=== PATIENT | female | born 1960 | race Caucasian/White ===

== ENCOUNTER 2021-04-02 00:07 | Day surgery (SDC) | payer OTHER, SELFPAY ==
[2021-03-21 12:51] VITALS: BMI 17.4
--- NOTE | 2021-03-21 13:03 | PC.NURSE ---
Report to the Outpatient Waiting Room, entrance under the green pavilion located off [facility], at time __0830 on date ___04/02/21____. OR Time: ___1029 . - You and your visitor will be asked a series of questions to screen for COVID 19 for your protection. - A mask is required within the hospital. - Only one visitor is allowed at this time. Patient visitors will be guided where to wait when not with patient. Preoperative COVID Testing Requirements: No COVID Test needed if: (proof is required; if not received patient will have Rapid Test prior to entry) - Patient has received COVID Vaccine at least 14 days prior to procedure date or - Patient has positive COVID test result within last 90 days of surgery date. COVID Test needed if above criteria is not met If not COVID vaccinated a COVID test must be conducted within 72 hours of surgery and patient is asked to isolate self from time of testing until procedure. You will go to the [facility] for your COVID testing. The [facility] is located at the corner of [address] [facility]. You will only be called if COVID results are positive and your surgeon may reschedule your elective surgery date. Patients may have clear liquids (water, carbonated beverages, clear teas, apple juice) until 3 hours prior to surgery with a maximum of 20 ounces. - No food from midnight until time of surgery - Infants may have breast milk until 4 hours before surgery, infant formula 6 hours prior to surgery. - Children will be allowed to drink immediately following surgery. If applicable, please bring a bottle or sippy cup to assist with drinking. Juice, water, soda, and popsicles are readily available. For infants on formula, please bring formula the day of surgery. Pacifiers are allowed. Take the following medications with a SIP of water the morning of surgery: ____ADVAIR INHALER Medications to discontinue per physician ALL VIT./SUPPLEMENTS Date to take last dose 03/29/21 Please no make-up, nail japanese, hairspray, perfume, deodorant, or body powder the day of surgery. No jewelry (including any body piercings) or valuables the day of surgery, leave them at home. Please take a shower or bath the night before, or the morning of, surgery with an antibacterial soap. Wear comfortable, loose fitting clothing. Children are encouraged to wear pajamas. - Jewelry must be removed prior to entering the operating room. Rings and piercings that are not removed may be cut off. - The hospital will not accept responsibility for valuables. - Please leave all valuables, including medications, at home the day of surgery. If you are going home after surgery, a licensed highway truck driver must drive you home. - NO public transportation without another adult. - We recommend that an adult stay with you for 24 hours following discharge. - We also recommend that you do not drive, make important decision, drink alcoholic beverages, or take any drugs that were not prescribed by your health care provider for at least 24 hours after your discharge time. For Pediatric surgeries, we recommend two adults accompany the child home (only one inside the building at this time). Follow any additional instructions given to you from your surgeon. Telephone instructions given to ____PATIENT and asked if any additional questions and then verbalized understanding. Patient advised to call surgeon office or pre surgery nurse liaison [phone] if any additional questions.
--- NOTE | 2021-04-01 09:49 | WPDANESEPPF ---
Anes - Initial Pre Proc Eval Procedure: Operation Date: 04/02/21 10:30 Proposed Procedures p Bilateral Breast Implant Exchange - Buster Rowland MD Date/Time: 04/01/21 09:49 Surgeon: Buster Rowland MD Pre Op Diagnosis: bilateral implant rupture Patient Data Age: 60 Gender: F Height: 1.78 m Weight: 55 kg Allergies Allergy/AdvReac Type Severity Reaction Status Date / Time cat dander Allergy Unknown asthma Verified 04/02/21 09:06 house dust Allergy Unknown asthma Verified 04/02/21 09:06 Home Medications Medication Instructions Recorded Confirmed Type fluticasone propionate 45 2 puff INHALATION BID 08/27/20 04/02/21 History mcg-salmeterol 21 mcg/actuation HFA inhaler lisinopril 20 mg tablet 20 mg PO QAM 08/27/20 04/02/21 History carisoprodol 350 mg tablet 350 mg PO TID PRN #21 tablet 03/18/21 03/21/21 Rx docusate sodium 100 mg capsule 100 mg PO DAILY #14 cap 03/18/21 03/21/21 Rx oxycodone-acetaminophen 5 mg-325 1 tablet PO Q6H PRN #30 tablet 03/18/21 03/21/21 Rx mg tablet cyanocobalamin (vitamin B-12) 500 mcg PO EVERY OTHER DAY 03/21/21 04/02/21 History vitamin B complex 1 cap PO EVERY OTHER DAY 03/21/21 04/02/21 History Patient hx anesthesia problems: none Family hx anesthesia problems: none Results Review: All pre-operative results and documents have been reviewed as part of the pre-operative evaluation. [facility] Past Medical History Medical History (Updated 04/01/21 @ 09:50 by Slade Guo DO) Asthma Hypertension Social History Social History Smoking status: Never smoker Substance use: never Living arrangements: with family Additional living arrangements comments: [facility] Spiritual care concerns: No Anes - Eval Final PreProcedure Day of Procedure 04/01/21 09:49 Patient weight: thin Heart: regular rate and rhythm Lungs: clear to auscultation and normal air movement Airway: Mallampati scale class II Neurological: alert and oriented Last oral intake: >/= 8 hours ASA classification: II Emergent: no Anesthetic plan: proceed Anesthesia type and monitoring: general GIVS and LMA and standard monitoring Results Review: All pre-operative results and documents have been reviewed as part of the pre-operative evaluation. Informed Consent: The patient's anesthetic plan and its attendant risks and benefits were discussed with the patient/family/POA. Questions were solicited and answers provided to the satisfaction of the patient/family/POA.
[2021-04-02] VITALS (10 sets, daily range): BP systolic 99–140; BP diastolic 64–79; PULSE 57–67; RESP 8–20; TEMP 36.7–36.8; O2SAT 94–100; BMI 17.3
--- NOTE | 2021-04-02 09:41 | WPDHPUPDATE1 ---
History and Physical Update Update Date/Time: 04/02/21 09:41 History and Physical has been reviewed, including an updated exam of the patient. There are NO changes in the patient's condition. Risks, benefits, and alternatives have been discussed and questions answered. Patient agrees to proceed with procedure.
[2021-04-02] MEDS: LACTATED RINGERS 1,000 ML 30 ML IV CONT ×2 (09:53→12:09)
--- NOTE | 2021-04-02 09:57 | SUR.PREOP ---
PT TEARFUL AND ANXIOUS DURING IV INSERTION. SPOUSE AT BEDSIDE [id number]; RN IN ROOM WHILE DR STACY MARKING PT. SPOUSE PRESENT ALSO
--- NOTE | 2021-04-02 10:05 | W.PM.PROC2 ---
Procedure Note - Detailed Date of Procedure 04/02/21 Pre-op Diagnosis bilateral implant rupture Post-op Diagnosis same Procedure Performed Bilateral breast implant exchange Surgeon Buster Rowland MD Anesthesia MAC Findings Bilateral implant rupture with significant extravasation extracapsular silicone bilateral. Bilateral implants 305cc. Smooth. Unable to identify other markings. Pre-pectoral Total capsulectomy completed. Bilateral Natrelle SoftTouch Implants 365cc Right - REF# [id number] SN [id number] Left - REF# [id number] SN [id number] Description of Procedure Preoperatively the risks, benefits, alternatives were discussed in extensive detail. I want her to be very clear about the risks involved as well as expectations. She understands she has skin laxity. She understands she will still have this skin laxity following the procedure. We explained the limitations this procedure and how we can make her worse during this procedure. She understands there is always risk of loss of implants. If the implants are smooth and no atypical findings of the capsule she declines sending the capsule to pathology. She understands the risks involved and that without pathology number certain there is abnormality in this capsule she is willing to accept this risk and this was discussed with her . All questions were answered to her satisfaction today and a lengthy open-ended conversation with her and her . She is going to discuss anesthesia options with anesthesia. Consent was obtained. She would like proceed. Patient was marked in the preoperative holding area. Taken to the operating room placed supine on the operating room table. Anesthesia provided by anesthesiology and prepped and draped in a standard sterile fashion. Surgical time-out was taken. 1% lidocaine and 0.25% Marcaine with epinephrine were used to provide a field block. Tegaderm nipple Lennon were used. Fifteen blade used to excise the previous IMF scar. Dissection was continued down until the capsules identified and removed the majority of this capsule. I then removed the bilateral implants. I copiously irrigated with saline bacitracin containing solution on TUR tubing and verified strict hemostasis. I changed gown and gloves. I copiously irrigated with triple antibiotic Betadine containing solution. Wash my gloves with the antibiotic solution. Using a Ashton funnel and a no-touch technique the implant was introduced into the pocket. This was closed using 2-0 Vicryl followed by 3-0 Monocryl in a running subcuticular 4-0 Monocryl and tissue glue. Dressings were placed. She was awoke and taken to the PACU without difficulty. All instrument sponge counts were correct at the end of the case. Estimated Blood Loss 40 Drains No Packing No Pathology none sent Complications No immediate complications Condition stable Disposition PACU
[2021-04-02] MEDS: ceFAZolin 2 GM/D5W 50 ML 2 GM/50 ML BAG IVPB (10:22)
[2021-04-02] MEDS: LIDO 1%/EPINEPHRINE 1:100,000 50 ML VIAL INFILTRATE (10:53)
[2021-04-02] MEDS: BUPIVACAINE HCL 0.25% PF 30 ML VIAL 60 ML INFILTRATE (10:54)
[2021-04-02] MEDS: TRANEXAMIC ACID 1,000 MG/10 ML AMPUL 1000 MG IV PUSH (11:50)
[2021-04-02] MEDS: fentaNYL CITRATE INJ (*CRX) 100 MCG/2 ML VIAL 25 MCG IV PUSH ×4 (12:32→12:46)
== END 2021-04-02 14:06 | disposition home or self-care (01) ==
PROVIDERS: Visit Provider Surgery Plastic and Reconstructive Surgery
PROC: (CPT 19342; principal; 2021-04-02 10:30)
DX: T85.41XA Breakdown (mechanical) of breast prosthesis and implant, initial encounter (principal); Y83.8 Other surgical procedures as the cause of abnormal reaction of the patient, or of later complication, without mention of misadventure at the time of the procedure; I10 Essential (primary) hypertension; J45.909 Unspecified asthma, uncomplicated; Z79.51 Long term (current) use of inhaled steroids
CPT/HCPCS: 19371; 19325; J0690; J1100; J1580; J2250; J2405; J2704; J3010; J7120